=== PATIENT | female | born 1990 | race Caucasian/White ===

== ENCOUNTER 2018-12-24 22:06 | Inpatient (IN) | payer BC ==
[2018-12-24] MEDS ORDERED: Morphine 4 MG/ML Syringe IVPUSH ONE (22:51)
[2018-12-24] MEDS ORDERED: Water For Irrigation,Sterile 1,000 ML Container IRR PRN (22:55)
[2018-12-24] MEDS ORDERED: Misoprostol 200 MCG Tab PO PRN (22:55)
[2018-12-24] MEDS ORDERED: Sodium Chloride 0.9% 2.5 ML Syringe FLUSH PRN (22:55)
[2018-12-24] MEDS ORDERED: Nalbuphine 10 MG/1 ML Vial IVPUSH PRN (22:55)
[2018-12-24] MEDS ORDERED: Carboprost Tromethamine 250 MCG/1 ML Amp IM PRN (22:55)
[2018-12-24] MEDS ORDERED: Sodium Chloride 0.9% 10 ML Syringe FLUSH PRN (22:55)
[2018-12-24] MEDS ORDERED: Sodium Chloride 0.9% 10 ML SDV IV PRN (22:55)
[2018-12-24] MEDS ORDERED: Lidocaine 1% 50 ML MDV INJECT PRN (22:55)
[2018-12-24] MEDS ORDERED: Tranexamic Acid 1,000 MG in Sodium Chloride 0.9% 100 ML IV PRN (22:55)
[2018-12-24] MEDS ORDERED: Methylergonovine 0.2 MG/1 ML Amp IM PRN (22:55)
[2018-12-24] MEDS ORDERED: Butorphanol 1 MG/ML SDV IVPUSH PRN (22:55)
[2018-12-24] MEDS ORDERED: Oxytocin/0.9 % Sodium Chloride 30 UNIT/500 ML BAG IV SCH (23:00)
[2018-12-24] MEDS: Lactated Ringers 1,000 ML IV SCH ×2 (23:05→23:40)
[2018-12-24] MEDS ORDERED: Bupivacaine 0.25% 10 ML SDV ONE (23:11)
[2018-12-24] MEDS ORDERED: fentaNYL 100 MCG/2 ML SDV ONE (23:11)
[2018-12-24] MEDS ORDERED: Lidocaine HCl/EPINEPHrine 5 ML IJ ONE (23:12)
[2018-12-24] MEDS ORDERED: Ampicillin 2 GM AdvVial IV ONE (23:28)
[2018-12-24] MEDS ORDERED: Sodium Chloride 0.9% 100 ML ONE (23:29)
--- NOTE | 2018-12-24 23:42 | PCM.PREANE ---
Preanesthetic Assessment - Anesthesia/Transfusion/Family Hx Anesthesia History: Prior Anesthesia Without Reaction Transfusion History: No Prior Transfusion(s) - Review of Systems General: No Symptoms Pulmonary: No Symptoms Cardiovascular: No Symptoms Gastrointestinal: No Symptoms Neurological: No Symptoms Other: Reports: None - Physical Assessment Pulse: 98 O2 Sat by Pulse Oximetry: 98 Respiratory Rate: 22 Blood Pressure: 125/73 Height: 1.73 m Weight: 94.347 kg - Lab Values: Laboratory Last Values WBC 17.94 K/uL (4.0-11.0) H 12/24/18 23:07 RBC 4.32 M/uL (4.30-5.90) 12/24/18 23:07 Hgb 13.7 g/dL (12.0-16.0) 12/24/18 23:07 Hct 38.7 % (36.0-46.0) 12/24/18 23:07 MCV 89.6 fL (80.0-98.0) 12/24/18 23:07 MCH 31.7 pg (27.0-32.0) 12/24/18 23:07 MCHC 35.4 g/dL (31.0-37.0) 12/24/18 23:07 RDW Std Deviation 43.5 fl (28.0-62.0) 12/24/18 23:07 RDW Coeff of Paul 14 % (11.0-15.0) 12/24/18 23:07 Plt Count 140 K/uL (150-400) L 12/24/18 23:07 MPV 12.00 fL (7.40-12.00) 12/24/18 23:07 Nucleated RBC % 0.0 /100WBC 12/24/18 23:07 Nucleated RBCs # 0 K/uL 12/24/18 23:07 - Allergies Allergies/Adverse Reactions: Allergies Allergy/AdvReac Type Severity Reaction Status Date / Time No Known Allergies Allergy Verified 12/24/18 22:10 - Acknowledgements Anesthesia Type Planned: Epidural Pt an Appropriate Candidate for the Planned Anesthesia: Yes Alternatives and Risks of Anesthesia Discussed w Pt/Guardian: Yes Pt/Guardian Understands and Agrees with Anesthesia Plan: Yes PreAnesthesia Questionnaire - Past Health History Medical/Surgical History: Denies Medical/Surgical History Genitourinary History: Reports: UTI, Recurrent [employer] History: Reports: Musculoskeletal History: Reports: Back Pain, Chronic 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 - Past Surgical History HEENT Surgical History: Reports: Oral Surgery - CURRENT (IN HOUSE) MEDS Current Meds: Current Medications Butorphanol Tartrate (Stadol) 1 mg IVPUSH Q1H PRN PRN Reason: Pain Carboprost Tromethamine (Hemabate Ds) 250 mcg IM ASDIRECTED PRN PRN Reason: Post Hemorrhage Tranexamic Acid 1,000 mg/ (Sodium Chloride) 110 mls @ 660 mls/hr IV ONETIME PRN PRN Reason: Bleeding Lactated Ringer's (Ringers, Lactated) 1,000 mls @ 150 mls/hr IV ASDIRECTED [facility] Last Admin: 12/24/18 23:40 Dose: 150 mls/hr Oxytocin/Sodium Chloride (Oxytocin 30 Unit/500 Ml-Ns) 30 unit in 500 mls @ 500 mls/hr IV TITRATE [facility] Lidocaine HCl (Xylocaine 1%) 50 ml INJECT ONETIME PRN PRN Reason: Laceration repair Methylergonovine Maleate (Methergine) 0.2 mg IM ASDIRECTED PRN PRN Reason: Post Hemorrhage Misoprostol (Cytotec) 200 mcg PO ONETIME PRN PRN Reason: Post Hemorrhage Nalbuphine HCl (Nubain) 10 mg IVPUSH Q1H PRN PRN Reason: Pain (severe 7-10) Sodium Chloride (Saline Flush) 10 ml FLUSH ASDIRECTED PRN PRN Reason: Keep Vein Open Sodium Chloride (Saline Flush) 2.5 ml FLUSH ASDIRECTED PRN PRN Reason: Keep Vein Open Sodium Chloride (Normal Saline) 10 ml IV ASDIRECTED PRN PRN Reason: IV Use Sterile Water (Sterile Water For Irrigation) 1,000 ml IRR ASDIRECTED PRN PRN Reason: delivery Discontinued Medications Ampicillin Sodium (Ampicillin) Confirm Administered Dose 2 gm IV .STK-MED ONE Stop: 12/24/18 23:29 Last Admin: 12/24/18 23:40 Dose: 2 gm Bupivacaine HCl (Sensorcaine-Mpf 0.25%) Confirm Administered Dose 10 ml .ROUTE .STK-MED ONE Stop: 12/24/18 23:12 Fentanyl (Sublimaze) Confirm Administered Dose 100 mcg .ROUTE .STK-MED ONE Stop: 12/24/18 23:12 Fentanyl/Bupivacaine HCl (Uqtqhtsg-Hzdzz-Wd 2 Mcg/Ml-0.125%) Confirm Administered Dose 100 mls @ as directed .ROUTE .STK-MED ONE Stop: 12/24/18 23:12 Sodium Chloride (Normal Saline) Confirm Administered Dose 100 mls @ as directed .ROUTE .STK-MED ONE Stop: 12/24/18 23:30 Lidocaine/Epinephrine (Lidocaine 1.5%-Epi 1:200,000) Confirm Administered Dose 5 ml IJ .STK-MED ONE Stop: 12/24/18 23:13 Morphine Sulfate (Morphine) 4 mg IVPUSH ONETIME ONE Stop: 12/24/18 22:52
--- NOTE | 2018-12-24 23:53 | PCM48HPAN ---
Post Anesthesia Note - EVALUATION WITHIN 48HRS OF ANESTHETIC Vital Signs in Normal Range: Yes Patient Participated in Evaluation: Yes Respiratory Function Stable: Yes Airway Patent: Yes Cardiovascular Function Stable: Yes Hydration Status Stable: Yes Pain Control Satisfactory: Yes Nausea and Vomiting Control Satisfactory: Yes Mental Status Recovered: Yes Pulse Rate: 98 Resp Rate: 22 Blood Pressure: 125/73
[2018-12-25] MEDS: Lactated Ringers 1,000 ML IV SCH (00:03)
[2018-12-25] MEDS: Ampicillin 1 GM in Sodium Chloride 0.9% 50 ML IV SCH (03:21)
[2018-12-25] MEDS ORDERED: Ondansetron 4 MG/2 ML SDV IVPUSH PRN (04:23)
[2018-12-25] MEDS ORDERED: Oxytocin/0.9 % Sodium Chloride 30 UNIT/500 ML BAG IV SCH (05:15)
[2018-12-25] MEDS ORDERED: Acetaminophen 500 MG Tab PO PRN ×2 (06:20)
[2018-12-25] MEDS ORDERED: oxyCODONE 5 MG Tab PO PRN (06:20)
[2018-12-25] MEDS ORDERED: Witch Hazel Medicated Pads 40/Jar TOP PRN (06:20)
[2018-12-25] MEDS ORDERED: Benzocaine/Menthol 20%-0.5% Spray 78 GM Cannister TOP PRN (06:20)
[2018-12-25] MEDS ORDERED: Ibuprofen 400 MG Tab PO PRN (06:20)
[2018-12-25] MEDS ORDERED: Bisacodyl 10 MG Supp RECTAL PRN (06:20)
[2018-12-25] MEDS ORDERED: Lanolin 100% Cream 7 GM Tube TOP PRN (06:20)
--- NOTE | 2018-12-25 06:47 | PCM.DEL ---
L & D Note - General Info Date of Service: 12/25/18 Mother's Due Date: 01/03/19 - Delivery Note Labor: Spontaneous, Augmented by Oxytocin Delivery Outcome: Livebirth Presentation: Left Occiput Anterior (TRAVIS) Nuchal Cord: None Anesthesia Type: Epidural Amniotic Fluid Description: Clear Episiotomy Type: None Laceration: 2nd Degree Suture type: Other (monocryl ) Suture size: 3-0 Score 1 min: 8 Score 5 min: 9 - General Info Date of Service: 12/25/18 - Patient Data Vitals - Most Recent: Last Vital Signs Temp Pulse 98 12/24/18 23:53 Resp 22 H 12/24/18 23:53 BP 125/73 12/24/18 23:53 Pulse Ox 98 12/24/18 23:42 Weight - Most Recent: 94.347 kg Lab Results Last 24 Hours: Laboratory Results - last 24 hr 12/24/18 12/24/18 Range/Units 23:07 23:07 WBC 17.94 H (4.0-11.0) K/uL RBC 4.32 (4.30-5.90) M/uL Hgb 13.7 (12.0-16.0) g/dL Hct 38.7 (36.0-46.0) % MCV 89.6 (80.0-98.0) fL MCH 31.7 (27.0-32.0) pg MCHC 35.4 (31.0-37.0) g/dL RDW Std Deviation 43.5 (28.0-62.0) fl RDW Coeff of Paul 14 (11.0-15.0) % Plt Count 140 L (150-400) K/uL MPV 12.00 (7.40-12.00) fL Nucleated RBC % 0.0 /100WBC Nucleated RBCs # 0 K/uL Blood Type B NEGATIVE Antibody Screen NEGATIVE Cold Antibody Screen POSITIVE Med Orders - Current: Current Medications Acetaminophen (Tylenol Extra Strength) 500 mg PO Q4H PRN PRN Reason: Pain Acetaminophen (Tylenol Extra Strength) 1,000 mg PO Q4H PRN PRN Reason: Pain Benzocaine/Menthol (Dermoplast Pain Relief 20%-0.5% [place]) 78 gm TOP ASDIRECTED PRN PRN Reason: Perineal Comfort Measure Bisacodyl (Dulcolax) 10 mg RECTAL ONETIME PRN PRN Reason: Constipation Butorphanol Tartrate (Stadol) 1 mg IVPUSH Q1H PRN PRN Reason: Pain Carboprost Tromethamine (Hemabate Ds) 250 mcg IM ASDIRECTED PRN PRN Reason: Post Hemorrhage Docusate Sodium (Colace) 100 mg PO BID PRN PRN Reason: Constipation Emollient Ointment (Lansinoh Hpa) 0 gm TOP ASDIRECTED PRN PRN Reason: Sore Nipples Tranexamic Acid 1,000 mg/ (Sodium Chloride) 110 mls @ 660 mls/hr IV ONETIME PRN PRN Reason: Bleeding Lactated Ringer's (Ringers, Lactated) 1,000 mls @ 150 mls/hr IV ASDIRECTED [facility] Last Admin: 12/25/18 00:03 Dose: 150 mls/hr Oxytocin/Sodium Chloride (Oxytocin 30 Unit/500 Ml-Ns) 30 unit in 500 mls @ 500 mls/hr IV TITRATE [facility] Ampicillin Sodium 1 gm/ Sodium (Chloride) 50 mls @ 100 mls/hr IV Q4H [facility] Last Admin: 12/25/18 03:21 Dose: 100 mls/hr Oxytocin/Sodium Chloride (Oxytocin 30 Unit/500 Ml-Ns) 30 unit in 500 mls @ 2 mls/hr IV TITRATE [facility]; Protocol Last Infusion: 12/25/18 05:18 Dose: 4 munits/min, 4 mls/hr Ibuprofen (Motrin) 400 mg PO Q4H PRN PRN Reason: Pain Ibuprofen (Motrin) 800 mg PO Q6H PRN PRN Reason: Pain Lidocaine HCl (Xylocaine 1%) 50 ml INJECT ONETIME PRN PRN Reason: Laceration repair Methylergonovine Maleate (Methergine) 0.2 mg IM ASDIRECTED PRN PRN Reason: Post Hemorrhage Misoprostol (Cytotec) 200 mcg PO ONETIME PRN PRN Reason: Post Hemorrhage Nalbuphine HCl (Nubain) 10 mg IVPUSH Q1H PRN PRN Reason: Pain (severe 7-10) Ondansetron HCl (Zofran) 4 mg IVPUSH Q4H PRN PRN Reason: Nausea Last Admin: 12/25/18 04:31 Dose: 4 mg Oxycodone HCl (Oxycodone) 5 mg PO Q2H PRN PRN Reason: Pain Sodium Chloride (Saline Flush) 10 ml FLUSH ASDIRECTED PRN PRN Reason: Keep Vein Open Sodium Chloride (Saline Flush) 2.5 ml FLUSH ASDIRECTED PRN PRN Reason: Keep Vein Open Sodium Chloride (Normal Saline) 10 ml IV ASDIRECTED PRN PRN Reason: IV Use Sterile Water (Sterile Water For Irrigation) 1,000 ml IRR ASDIRECTED PRN PRN Reason: delivery Last Admin: 12/25/18 06:18 Dose: 1,000 ml Witch Arabella (Tucks) 1 pad TOP ASDIRECTED PRN PRN Reason: comfort care Discontinued Medications Ampicillin Sodium (Ampicillin) Confirm Administered Dose 2 gm IV .STK-MED ONE Stop: 12/24/18 23:29 Last Admin: 12/24/18 23:40 Dose: 2 gm Bupivacaine HCl (Sensorcaine-Mpf 0.25%) Confirm Administered Dose 10 ml .ROUTE .STK-MED ONE Stop: 12/24/18 23:12 Fentanyl (Sublimaze) Confirm Administered Dose 100 mcg .ROUTE .STK-MED ONE Stop: 12/24/18 23:12 Fentanyl/Bupivacaine HCl (Vnoobyfl-Gadkv-Nq 2 Mcg/Ml-0.125%) Confirm Administered Dose 100 mls @ as directed .ROUTE .STK-MED ONE Stop: 12/24/18 23:12 Sodium Chloride (Normal Saline) Confirm Administered Dose 100 mls @ as directed .ROUTE .STK-MED ONE Stop: 12/24/18 23:30 Last Admin: 12/24/18 23:40 Dose: Not Given Fentanyl/Bupivacaine HCl (Nhpzqdwn-Daguh-Vv 2 Mcg/Ml-0.125%) Confirm Administered Dose 100 mls @ as directed .ROUTE .STK-MED ONE Stop: 12/25/18 04:13 Lidocaine/Epinephrine (Lidocaine 1.5%-Epi 1:200,000) Confirm Administered Dose 5 ml IJ .STK-MED ONE Stop: 12/24/18 23:13 Morphine Sulfate (Morphine) 4 mg IVPUSH ONETIME ONE Stop: 12/24/18 22:52 - Problem List & Annotations (1) Vaginal delivery SNOMED Code(s): 188323428 Code(s): O80 - ENCOUNTER FOR FULL-TERM UNCOMPLICATED DELIVERY Status: Acute Current Visit: No - Problem List Review Problem List Initiated/Reviewed/Updated: Yes - My Orders Last 24 Hours: My Active Orders 12/24/18 22:11 Resuscitation Status Routine 12/24/18 22:12 Patient Status [ADT] Routine Non Stress Test [RC] PER UNIT ROUTINE Up ad Cecilia [RC] ASDIRECTED Vaginal Exam [RC] Click to Edit Vital Signs [RC] PER UNIT ROUTINE 12/25/18 03:15 Ampicillin 1 gm Sodium Chloride 0.9% [Normal Saline] 50 ml IV Q4H 12/25/18 04:23 Ondansetron [Zofran] 4 mg IVPUSH Q4H PRN 12/25/18 05:15 Oxytocin/0.9 % Sodium Chloride [Oxytocin 30 Unit/500 ML-NS] 30 unit in 500 ml IV TITRATE 12/25/18 06:20 RHIG WORKUP, [BBK] Routine Acetaminophen [Tylenol Extra Strength] 1,000 mg PO Q4H PRN Acetaminophen [Tylenol Extra Strength] 500 mg PO Q4H PRN Benzocaine/Menthol [Dermoplast Pain Relief 20%-0.5% [place]] 78 gm TOP ASDIRECTED PRN Bisacodyl [Dulcolax] 10 mg RECTAL ONETIME PRN Docusate Sodium [Colace] 100 mg PO BID PRN Ibuprofen [Motrin] 400 mg PO Q4H PRN Ibuprofen [Motrin] 800 mg PO Q6H PRN Lanolin [Lansinoh HPA] See Dose Instructions TOP ASDIRECTED PRN Witch Arabella [Tucks] 1 pad TOP ASDIRECTED PRN oxyCODONE 5 mg PO Q2H PRN 12/25/18 06:21 May Shower [RC] ASDIRECTED Up ad Cecilia [RC] ASDIRECTED Vital Signs [RC] PER UNIT ROUTINE Assess Lochia [WOMSER] Per Unit Routine Assess Uterine Involution [WOMSER] Per Unit Routine Peripheral IV Discontinue [OM.PC] Routine 12/26/18 05:11 HEMOGLOBIN/HEMATOCRIT,HH [HEME] Timed
--- NOTE | 2018-12-25 08:51 | OR ---
SURGEON: OG PLUMMER DATE OF PROCEDURE: 12/25/2018 PREOPERATIVE DIAGNOSIS: A 28-year-old, 2, para 1-0-0-1, at 38 weeks 5 days, in active labor. POSTOPERATIVE DIAGNOSES: A 28-year-old, 2, para 1-0-0-1, at 38 weeks 5 days, in active labor, group B streptococcus positive. ANESTHESIA: Epidural. IV FLUIDS: Pitocin running. PROCEDURE: Normal spontaneous vaginal delivery and repair of second-degree vaginal laceration. ESTIMATED BLOOD LOSS: 200 NOTES AND FINDING: A live male delivered at 5:44 a.m., with scores of 8 and 9, weight was 3610 g; a second-degree laceration that was repaired with 3-0 Monocryl. BRIEF HISTORY ABOUT THE PATIENT: She is a 28-year-old, G2, P1-0-0-1, who came in active labor. She was made change from 3 cm to 7 cm. She was requesting epidural which she got. Tracing was category I. She then made change after a little bit of augmentation with Pitocin to be fully dilated. With the patient being fully dilated, she was encouraged to push. DESCRIPTION OF PROCEDURE: With good pushing effort, the patient delivered the head in TRAVIS position, followed subsequently by the anterior and posterior shoulder. The of the body was delivered. The Pitocin was started. Infant was placed on maternal abdomen. Delayed cord clamping was observed. The placenta was delivered via controlled cord traction. The perineum was inspected and noted to have a second - degree laceration, which was repaired in layer with 3-0 Monocryl and the perineum was again inspected and noted to be hemostatic. Fundal massage was done and all instrument and pad counts were correct x2. The was left with the parents in Labor and Delivery suite in stable condition. WM / ELIZA /[id number] MTDD
[2018-12-25] MEDS: Docusate Sodium 100 MG Cap PO PRN ×2 (09:44→21:23)
[2018-12-25] MEDS: Ibuprofen 800 MG Tab PO PRN ×2 (16:28→22:31)
[2018-12-26 05:34] VITALS: BP 121/72
--- NOTE | 2018-12-26 07:29 | PCM.PNPP ---
<Cathryn Morse - Last Filed: 12/26/18 07:24> - General Info Date of Service: 12/26/18 Admission Dx/Problem (Free Text): spontaneous vaginal delivery Subjective Update: January is PP day 1 for of a liveborn infant. She states that she has no pain , is ambulating, eating, urinating well. She is having trouble as baby has a "shallow latch". She desires to go home this morning and reports no new symptoms. Functional Status: Reports: Pain Controlled, Tolerating Diet, Ambulating, Urinating - Review of Systems General: Reports: No Symptoms Pulmonary: Reports: No Symptoms Cardiovascular: Reports: No Symptoms Gastrointestinal: Reports: No Symptoms Genitourinary: Reports: No Symptoms Musculoskeletal: Reports: No Symptoms Skin: Reports: No Symptoms Neurological: Reports: No Symptoms Psychiatric: Reports: No Symptoms - General Info Date of Service: 12/26/18 - Patient Data Vital Signs - Most Recent: Last Vital Signs Temp 97.5 F 12/26/18 04:00 Pulse 66 12/26/18 04:00 Resp 17 12/26/18 04:00 BP 121/72 12/26/18 04:00 Pulse Ox 96 12/26/18 04:00 Weight - Most Recent: 94.347 kg Lab Results - Last 24 Hours: Laboratory Results - last 24 hr 12/26/18 Range/Units 05:46 Hgb 12.6 (12.0-16.0) g/dL Hct 37.4 (36.0-46.0) % Med Orders - Current: Current Medications Acetaminophen (Tylenol Extra Strength) 500 mg PO Q4H PRN PRN Reason: Pain Acetaminophen (Tylenol Extra Strength) 1,000 mg PO Q4H PRN PRN Reason: Pain Last Admin: 12/25/18 09:43 Dose: 1,000 mg Benzocaine/Menthol (Dermoplast Pain Relief 20%-0.5% [place]) 78 gm TOP ASDIRECTED PRN PRN Reason: Perineal Comfort Measure Last Admin: 12/25/18 09:44 Dose: 78 gm Bisacodyl (Dulcolax) 10 mg RECTAL ONETIME PRN PRN Reason: Constipation Butorphanol Tartrate (Stadol) 1 mg IVPUSH Q1H PRN PRN Reason: Pain Carboprost Tromethamine (Hemabate Ds) 250 mcg IM ASDIRECTED PRN PRN Reason: Post Hemorrhage Docusate Sodium (Colace) 100 mg PO BID PRN PRN Reason: Constipation Last Admin: 12/25/18 21:23 Dose: 100 mg Emollient Ointment (Lansinoh Hpa) 0 gm TOP ASDIRECTED PRN PRN Reason: Sore Nipples Last Admin: 12/25/18 09:44 Dose: 7 gm Tranexamic Acid 1,000 mg/ (Sodium Chloride) 110 mls @ 660 mls/hr IV ONETIME PRN PRN Reason: Bleeding Lactated Ringer's (Ringers, Lactated) 1,000 mls @ 150 mls/hr IV ASDIRECTED [facility] Last Admin: 12/25/18 00:03 Dose: 150 mls/hr Oxytocin/Sodium Chloride (Oxytocin 30 Unit/500 Ml-Ns) 30 unit in 500 mls @ 500 mls/hr IV TITRATE [facility] Ampicillin Sodium 1 gm/ Sodium (Chloride) 50 mls @ 100 mls/hr IV Q4H [facility] Last Admin: 12/25/18 03:21 Dose: 100 mls/hr Oxytocin/Sodium Chloride (Oxytocin 30 Unit/500 Ml-Ns) 30 unit in 500 mls @ 2 mls/hr IV TITRATE [facility]; Protocol Last Infusion: 12/25/18 05:18 Dose: 4 munits/min, 4 mls/hr Ibuprofen (Motrin) 400 mg PO Q4H PRN PRN Reason: Pain Ibuprofen (Motrin) 800 mg PO Q6H PRN PRN Reason: Pain Last Admin: 12/25/18 22:31 Dose: 800 mg Lidocaine HCl (Xylocaine 1%) 50 ml INJECT ONETIME PRN PRN Reason: Laceration repair Methylergonovine Maleate (Methergine) 0.2 mg IM ASDIRECTED PRN PRN Reason: Post Hemorrhage Misoprostol (Cytotec) 200 mcg PO ONETIME PRN PRN Reason: Post Hemorrhage Nalbuphine HCl (Nubain) 10 mg IVPUSH Q1H PRN PRN Reason: Pain (severe 7-10) Ondansetron HCl (Zofran) 4 mg IVPUSH Q4H PRN PRN Reason: Nausea Last Admin: 12/25/18 04:31 Dose: 4 mg Oxycodone HCl (Oxycodone) 5 mg PO Q2H PRN PRN Reason: Pain Sodium Chloride (Saline Flush) 10 ml FLUSH ASDIRECTED PRN PRN Reason: Keep Vein Open Sodium Chloride (Saline Flush) 2.5 ml FLUSH ASDIRECTED PRN PRN Reason: Keep Vein Open Sodium Chloride (Normal Saline) 10 ml IV ASDIRECTED PRN PRN Reason: IV Use Sterile Water (Sterile Water For Irrigation) 1,000 ml IRR ASDIRECTED PRN PRN Reason: delivery Last Admin: 12/25/18 06:18 Dose: 1,000 ml Witch Arabella (Tucks) 1 pad TOP ASDIRECTED PRN PRN Reason: comfort care Last Admin: 12/25/18 09:44 Dose: 1 pad Discontinued Medications Ampicillin Sodium (Ampicillin) Confirm Administered Dose 2 gm IV .STK-MED ONE Stop: 12/24/18 23:29 Last Admin: 12/24/18 23:40 Dose: 2 gm Bupivacaine HCl (Sensorcaine-Mpf 0.25%) Confirm Administered Dose 10 ml .ROUTE .STK-MED ONE Stop: 12/24/18 23:12 Fentanyl (Sublimaze) Confirm Administered Dose 100 mcg .ROUTE .STK-MED ONE Stop: 12/24/18 23:12 Fentanyl/Bupivacaine HCl (Tegkaizg-Jrsxe-Ke 2 Mcg/Ml-0.125%) Confirm Administered Dose 100 mls @ as directed .ROUTE .STK-MED ONE Stop: 12/24/18 23:12 Sodium Chloride (Normal Saline) Confirm Administered Dose 100 mls @ as directed .ROUTE .STK-MED ONE Stop: 12/24/18 23:30 Last Admin: 12/24/18 23:40 Dose: Not Given Fentanyl/Bupivacaine HCl (Setapgbj-Yqioj-Aa 2 Mcg/Ml-0.125%) Confirm Administered Dose 100 mls @ as directed .ROUTE .STK-MED ONE Stop: 12/25/18 04:13 Lidocaine/Epinephrine (Lidocaine 1.5%-Epi 1:200,000) Confirm Administered Dose 5 ml IJ .STK-MED ONE Stop: 12/24/18 23:13 Morphine Sulfate (Morphine) 4 mg IVPUSH ONETIME ONE Stop: 12/24/18 22:52 - Infant Interaction Disposition, : [place] at Bedside Infant Interaction: Other (see below) (infant in bassinette in room) Feeding: Attempted ; Nursed Fair/Poor Other Feeding: requested to see counselor Support Person: - Recovery Exam Fundal Tone: Firm Fundal Level: At Umbilicus Fundal Placement: Midline Lochia Amount: Small Lochia Color: Rubra/Red Perineum Description: Other (see below) Other Perinuem Description: Second degree tear Episiotomy/Laceration: Approximated Bladder Status: Voiding Urinary Elimination: Voided - Exam General: Alert, Oriented HEENT: Pupils Equal, Pupils Reactive, EOMI Neck: Supple Lungs: Clear to Auscultation, Normal Respiratory Effort Cardiovascular: Regular Rate, Regular Rhythm GI/Abdominal Exam: Normal Bowel Sounds, Soft, Non-Tender, No Organomegaly Extremities: Normal Inspection, Normal Range of Motion, Non-Tender, No Pedal Edema Skin: Warm, Dry, Intact Wound/Incisions: Healing Well Neurological: No New Focal Deficit Psy/Mental Status: Alert, Normal Affect, Normal Mood - Problem List & Annotations (1) Vaginal delivery SNOMED Code(s): 135495862 Code(s): O80 - ENCOUNTER FOR FULL-TERM UNCOMPLICATED DELIVERY Status: Acute Current Visit: No - Problem List Review Problem List Initiated/Reviewed/Updated: Yes - Assessment Assessment:: January is PP day 1 for . She is improving in status and has reassuring labs. Her vital signs are stable. - Plan Plan:: Pain-- continue to manage pain. Discharge on tylenol and ibuprofen prn for pain. PP cares-- continue routine PP cares. Disposition-- patient stable and continuing to improve. Will likely discharge to home this morning. <Sherie Hess - Last Filed: 12/26/18 07:55> - Patient Data Vital Signs - Most Recent: Last Vital Signs Temp 36.4 C 12/26/18 04:00 Pulse 66 12/26/18 04:00 Resp 17 12/26/18 04:00 BP 121/72 12/26/18 04:00 Pulse Ox 96 12/26/18 04:00 Lab Results - Last 24 Hours: Laboratory Results - last 24 hr 12/26/18 Range/Units 05:46 Hgb 12.6 (12.0-16.0) g/dL Hct 37.4 (36.0-46.0) % Med Orders - Current: Current Medications Acetaminophen (Tylenol Extra Strength) 500 mg PO Q4H PRN PRN Reason: Pain Acetaminophen (Tylenol Extra Strength) 1,000 mg PO Q4H PRN PRN Reason: Pain Last Admin: 12/25/18 09:43 Dose: 1,000 mg Benzocaine/Menthol (Dermoplast Pain Relief 20%-0.5% [place]) 78 gm TOP ASDIRECTED PRN PRN Reason: Perineal Comfort Measure Last Admin: 12/25/18 09:44 Dose: 78 gm Bisacodyl (Dulcolax) 10 mg RECTAL ONETIME PRN PRN Reason: Constipation Butorphanol Tartrate (Stadol) 1 mg IVPUSH Q1H PRN PRN Reason: Pain Carboprost Tromethamine (Hemabate Ds) 250 mcg IM ASDIRECTED PRN PRN Reason: Post Hemorrhage Docusate Sodium (Colace) 100 mg PO BID PRN PRN Reason: Constipation Last Admin: 12/25/18 21:23 Dose: 100 mg Emollient Ointment (Lansinoh Hpa) 0 gm TOP ASDIRECTED PRN PRN Reason: Sore Nipples Last Admin: 12/25/18 09:44 Dose: 7 gm Tranexamic Acid 1,000 mg/ (Sodium Chloride) 110 mls @ 660 mls/hr IV ONETIME PRN PRN Reason: Bleeding Lactated Ringer's (Ringers, Lactated) 1,000 mls @ 150 mls/hr IV ASDIRECTED [facility] Last Admin: 12/25/18 00:03 Dose: 150 mls/hr Oxytocin/Sodium Chloride (Oxytocin 30 Unit/500 Ml-Ns) 30 unit in 500 mls @ 500 mls/hr IV TITRATE [facility] Ampicillin Sodium 1 gm/ Sodium (Chloride) 50 mls @ 100 mls/hr IV Q4H [facility] Last Admin: 12/25/18 03:21 Dose: 100 mls/hr Oxytocin/Sodium Chloride (Oxytocin 30 Unit/500 Ml-Ns) 30 unit in 500 mls @ 2 mls/hr IV TITRATE [facility]; Protocol Last Infusion: 12/25/18 05:18 Dose: 4 munits/min, 4 mls/hr Ibuprofen (Motrin) 400 mg PO Q4H PRN PRN Reason: Pain Ibuprofen (Motrin) 800 mg PO Q6H PRN PRN Reason: Pain Last Admin: 12/25/18 22:31 Dose: 800 mg Lidocaine HCl (Xylocaine 1%) 50 ml INJECT ONETIME PRN PRN Reason: Laceration repair Methylergonovine Maleate (Methergine) 0.2 mg IM ASDIRECTED PRN PRN Reason: Post Hemorrhage Misoprostol (Cytotec) 200 mcg PO ONETIME PRN PRN Reason: Post Hemorrhage Nalbuphine HCl (Nubain) 10 mg IVPUSH Q1H PRN PRN Reason: Pain (severe 7-10) Ondansetron HCl (Zofran) 4 mg IVPUSH Q4H PRN PRN Reason: Nausea Last Admin: 12/25/18 04:31 Dose: 4 mg Oxycodone HCl (Oxycodone) 5 mg PO Q2H PRN PRN Reason: Pain Sodium Chloride (Saline Flush) 10 ml FLUSH ASDIRECTED PRN PRN Reason: Keep Vein Open Sodium Chloride (Saline Flush) 2.5 ml FLUSH ASDIRECTED PRN PRN Reason: Keep Vein Open Sodium Chloride (Normal Saline) 10 ml IV ASDIRECTED PRN PRN Reason: IV Use Sterile Water (Sterile Water For Irrigation) 1,000 ml IRR ASDIRECTED PRN PRN Reason: delivery Last Admin: 12/25/18 06:18 Dose: 1,000 ml Witch Arabella (Tucks) 1 pad TOP ASDIRECTED PRN PRN Reason: comfort care Last Admin: 12/25/18 09:44 Dose: 1 pad Discontinued Medications Ampicillin Sodium (Ampicillin) Confirm Administered Dose 2 gm IV .STK-MED ONE Stop: 12/24/18 23:29 Last Admin: 12/24/18 23:40 Dose: 2 gm Bupivacaine HCl (Sensorcaine-Mpf 0.25%) Confirm Administered Dose 10 ml .ROUTE .STK-MED ONE Stop: 12/24/18 23:12 Fentanyl (Sublimaze) Confirm Administered Dose 100 mcg .ROUTE .STK-MED ONE Stop: 12/24/18 23:12 Fentanyl/Bupivacaine HCl (Xtshvmgs-Ylqgs-Zs 2 Mcg/Ml-0.125%) Confirm Administered Dose 100 mls @ as directed .ROUTE .STK-MED ONE Stop: 12/24/18 23:12 Sodium Chloride (Normal Saline) Confirm Administered Dose 100 mls @ as directed .ROUTE .STK-MED ONE Stop: 12/24/18 23:30 Last Admin: 12/24/18 23:40 Dose: Not Given Fentanyl/Bupivacaine HCl (Xqvefamp-Fckfb-Qf 2 Mcg/Ml-0.125%) Confirm Administered Dose 100 mls @ as directed .ROUTE .STK-MED ONE Stop: 12/25/18 04:13 Lidocaine/Epinephrine (Lidocaine 1.5%-Epi 1:200,000) Confirm Administered Dose 5 ml IJ .STK-MED ONE Stop: 12/24/18 23:13 Morphine Sulfate (Morphine) 4 mg IVPUSH ONETIME ONE Stop: 12/24/18 22:52 - Problem List & Annotations (1) Vaginal delivery SNOMED Code(s): 905830246 Code(s): O80 - ENCOUNTER FOR FULL-TERM UNCOMPLICATED DELIVERY Status: Acute Current Visit: Yes - My Orders Last 24 Hours: My Active Orders 12/25/18 Lunch Regular Diet [DIET] - Plan Plan:: 28 yo P1 s/p stable PPD 1 Discharge home today Will encourage documentum consultant to visit with patient
[2018-12-26] MEDS: Ampicillin 1 GM in Sodium Chloride 0.9% 50 ML IV SCH ×2 (08:45→08:46)
[2018-12-26] MEDS: Docusate Sodium 100 MG Cap PO PRN (09:55)
== END 2018-12-26 10:45 | disposition home or self-care (01) | DRG 560 ==
LOC: MW.OBCHECK 22:06 → MW.OB 22:07 → MW.OBCHECK 22:56 → OBSVTOIN 12-25 05:44 → MW.OB 12-25 10:30
PROVIDERS: ADMIT Obstetrics & Gynecology; ATTEND Obstetrics & Gynecology
PROC: 00HU33Z Insertion of Infusion Device into Spinal Canal, Percutaneous Approach (ICD-10-PCS; 2018-12-24)
PROC: 3E0R3BZ Introduction of Anesthetic Agent into Spinal Canal, Percutaneous Approach (ICD-10-PCS; 2018-12-24)
PROC: 10E0XZZ Delivery of Products of Conception, External Approach (ICD-10-PCS; principal; 2018-12-25)
PROC: 0KQM0ZZ Repair Perineum Muscle, Open Approach (ICD-10-PCS; principal; 2018-12-25)
DX: O99.824 Streptococcus B carrier state complicating childbirth (principal); Z37.0 Single live birth; Z3A.38 38 weeks gestation of pregnancy; O98.32 Other infections with a predominantly sexual mode of transmission complicating childbirth; A63.0 Anogenital (venereal) warts; O70.1 Second degree perineal laceration during delivery; O99.354 Diseases of the nervous system complicating childbirth; G89.29 Other chronic pain; O75.89 Other specified complications of labor and delivery; M54.9 Dorsalgia, unspecified; Z87.440 Personal history of urinary (tract) infections
CPT/HCPCS: 36415; 51702; 59025; 59409; 85014; 85018; 85027; 86156; 86850; 86900; 86901; A9270-GY; J0290; J2405; J2590; J7050; J7120

== ENCOUNTER 2020-02-11 22:41 | Emergency (ER) | payer BC ==
--- NOTE | 2020-02-11 23:05 | EDM.PDOC ---
ED HPI GENERAL MEDICAL PROBLEM - General Chief Complaint: Genitourinary Problem Stated Complaint: POSSIBLE UTI Time Seen by Provider: 02/11/20 22:44 Source of Information: Reports: Patient History Limitations: Reports: No Limitations - History of Present Illness INITIAL COMMENTS - FREE TEXT/NARRATIVE: History of present illness: [Patient presents with increased frequency of urination and dysuria. She reports history of frequent UTIs. States that Cipro usually has been effective in treating her UTIs in the past. Denies fever. Denies chest pain, shortness of breath, vomiting, diarrhea. Has tried taking Azo at home to help relieve the symptoms with minimal relief. No other complaints or issues at this time.] Review of systems: As per history of present illness and below otherwise all systems reviewed and negative. Past medical history: As per history of present illness and as reviewed below otherwise noncontributory. Surgical history: As per history of present illness and as reviewed below otherwise noncontributory. Social history: No reported history of drug or alcohol abuse. Family history: As per history of present illness and as reviewed below otherwise noncontributory. Physical exam: General: Awake, alert, no acute distress, A&O X3. HEENT: Atraumatic, normocephalic, pupils reactive, negative for conjunctival pallor or scleral icterus, mucous membranes moist, throat clear, neck supple, nontender, trachea midline. Lungs: Clear to auscultation, breath sounds equal bilaterally, chest nontender. Heart: RRR, normal S1S2, no JVD. Abdomen: Soft, nondistended, nontender. Negative for masses or hepatosplenomegaly. Negative for costovertebral tenderness. Pelvis: Stable nontender. Genitourinary: Deferred. Rectal: Deferred. Extremities: Atraumatic, no edema, Neurovascular unremarkable. Neuro: Motor and sensory grossly intact throughout. Exam nonfocal. Diagnostics: [] Therapeutics: [] Impression: [] Plan: [] Definitive disposition and diagnosis as appropriate pending reevaluation and review of above. abdomen Pain Score (Numeric/FACES): 7 - Related Data Allergies Allergy/AdvReac Type Severity Reaction Status Date / Time No Known Allergies Allergy Verified 02/11/20 22:56 Home Meds: Home Meds . 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 - Infectious Disease History Infectious Disease History: Reports: Chicken Pox - Past Surgical History HEENT Surgical History: Reports: Oral Surgery Social & Family History - Family History Cardiac: Reports: Hypertension, [place] GI: Reports: Diverticulitis : Reports: UTI, Recurrent OBGYN: Reports: Musculoskeletal: Reports: Arthritis Psychiatric: Reports: Bipolar Endocrine/Metabolic: Reports: Diabetes, type II Oncologic: Reports: Breast, Liver - Tobacco Use Smoking Status *Q: Never Smoker - Caffeine Use Caffeine Use: Reports: Coffee - Recreational Drug Use Recreational Drug Use: No ED ROS GENERAL - Review of Systems Review Of Systems: Comprehensive ROS is negative, except as noted in HPI. ED EXAM, RENAL/ - Physical Exam Exam: See Below (see h and p) Course - Vital Signs Text/Narrative:: Patient received a dose of Cipro here. Was sent home with prescription for Cipro. Encouraged to follow-up with PCP. Otherwise nontoxic with stable vital signs and appropriate for outpatient management follow-up. Return precautions provided. Last Recorded V/S: Last Vital Signs Temp 36.1 C 02/11/20 22:53 Pulse 65 02/11/20 22:53 Resp 16 02/11/20 22:53 BP 142/63 H 02/11/20 22:53 Pulse Ox 98 02/11/20 22:53 - Orders/Labs/Meds Orders: Active Orders 24 hr Category Date Time Status Ciprofloxacin [Ciprofloxacin HCl] Med 02/11/20 23:08 Once 500 mg PO ONETIME ONE Medication Orders Ciprofloxacin (Ciprofloxacin Hcl) 500 mg PO ONETIME ONE Stop: 02/11/20 23:09 Labs: Laboratory Tests 02/11/20 02/11/20 Range/Units 10:47 10:47 Urine Color ORANGE Urine Appearance HAZY Urine pH 6.5 (5.0-8.0) Ur Specific [place] 1.025 (1.001-1.035) Urine Protein >=300 H (NEGATIVE) mg/dL Urine Glucose (UA) 500 H (NEGATIVE) mg/dL Urine Ketones 15 H (NEGATIVE) mg/dL Urine Occult Blood TRACE-INTACT H (NEGATIVE) Urine Nitrite POSITIVE H (NEGATIVE) Urine Bilirubin NEGATIVE (NEGATIVE) Urine Urobilinogen >=8.0 H (<2.0) EU/dL Ur Leukocyte Esterase MODERATE H (NEGATIVE) Urine RBC 2-5 (0-2/HPF) Urine WBC 50-60 (0-5/HPF) Ur Epithelial Cells FEW (NONE-FEW) Urine Bacteria 1+ H (NEGATIVE) Urine HCG, Qual NEGATIVE (NEGATIVE) Meds: Medications Generic Name Dose Route Start Last Admin Trade Name Freq PRN Reason Stop Dose Admin Ciprofloxacin 500 mg 02/11/20 23:08 Ciprofloxacin Hcl PO 02/11/20 23:09 ONETIME ONE Departure - Departure Time of Disposition: 23:09 Disposition: Home, Self-Care 01 Condition: Good Clinical Impression: UTI, Urinary tract infectious disease, UTI (urinary tract infection) - Discharge Information Instructions: Urinary Tract Infection, Adult, [id number] Referrals: Iza Giron MD [Primary Care Provider] - Forms: ED Department Discharge Additional Instructions: Follow-up with primary care doctor. Take all medications as prescribed. Return to ER with any new or worsening symptoms. The following information is given to patients seen in the emergency department who are being discharged to home. This information is to outline your options for follow-up care. We provide all patients seen in our emergency department with a follow-up referral. The need for follow-up, as well as the timing and circumstances, are variable depending upon the specifics of your emergency department visit. If you don't have a primary care physician on staff, we will provide you with a referral. We always advise you to contact your personal physician following an emergency department visit to inform them of the circumstance of the visit and for follow-up with them and/or the need for any referrals to a consulting specialist. The emergency department will also refer you to a specialist when appropriate. This referral assures that you have the opportunity for follow-up care with a specialist. All of these measure are taken in an effort to provide you with optimal care, which includes your follow-up. Under all circumstances we always encourage you to contact your private physician who remains a resource for coordinating your care. When calling for follow-up care, please make the office aware that this follow-up is from your recent emergency room visit. If for any reason you are refused follow-up, please contact the [facility] Emergency Department at and asked to speak to the emergency department charge nurse. Sepsis Event Note - Evaluation Sepsis Screening Result: No Definite Risk - Focused Exam Vital Signs: Vital Signs Temp Pulse Resp BP Pulse Ox 02/11/20 22:53 36.1 C 65 16 142/63 H 98 Date Exam was Performed: 02/11/20 Time Exam was Performed: 23:09 - My Orders Last 24 Hours: My Active Orders 02/11/20 23:08 Ciprofloxacin [Ciprofloxacin HCl] 500 mg PO ONETIME ONE - Assessment/Plan Last 24 Hours: My Active Orders 02/11/20 23:08 Ciprofloxacin [Ciprofloxacin HCl] 500 mg PO ONETIME ONE
[2020-02-11] MEDS ORDERED: Ciprofloxacin 500 MG Tab PO ONE (23:08)
[2020-02-11 23:22] VITALS: BP 115/64; PULSE 64
== END 2020-02-11 23:20 | disposition home or self-care (01) ==
LOC: MW.ED 22:41
DX: N39.0 Urinary tract infection, site not specified (principal)
CPT/HCPCS: 81001; 81025; 99283; A9270; 99282

== ENCOUNTER 2020-03-24 08:59 | Emergency (ER) | payer BC ==
--- NOTE | 2020-03-24 09:31 | EDM.PDOC ---
ED HPI GENERAL MEDICAL PROBLEM - General Chief Complaint: Genitourinary Problem Stated Complaint: PT CLAIMS UTI AND EAR ACHE Time Seen by Provider: 03/24/20 09:03 Source of Information: Reports: Patient History Limitations: Reports: No Limitations - History of Present Illness INITIAL COMMENTS - FREE TEXT/NARRATIVE: 30-year-old female with no pertinent past medical history presenting with ear pain and dysuria. 2-day history of pain just prior to urinating, feels identical to prior UTIs. Denies hematuria, vaginal bleeding, fever, chills, nausea, vomiting. Also reports a 2-day history of right ear pain and right- sided sore throat. No change in hearing, no otorrhea, no facial or ear swelling, able to handle secretions without difficulty, no neck stiffness, no shortness of breath. 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 - Infectious Disease History Infectious Disease History: Reports: Chicken Pox - Past Surgical History HEENT Surgical History: Reports: Oral Surgery Social & Family History - Family History Family Medical History: Noncontributory Cardiac: Reports: Hypertension, [place] GI: Reports: Diverticulitis : Reports: UTI, Recurrent OBGYN: Reports: Musculoskeletal: Reports: Arthritis Psychiatric: Reports: Bipolar Endocrine/Metabolic: Reports: Diabetes, type II Oncologic: Reports: Breast, Liver - Tobacco Use Smoking Status *Q: Never Smoker - Caffeine Use Caffeine Use: Reports: Coffee - Recreational Drug Use Recreational Drug Use: No ED ROS GENERAL - Review of Systems Review Of Systems: See Below Constitutional: Denies: Fever, Chills HEENT: Reports: Ear Pain, Throat Pain. Denies: Dental Pain, Ear Discharge, Hearing Loss, Nosebleed, Nose Pain, Rhinitis, Throat Swelling Respiratory: Denies: Shortness of Breath Cardiovascular: Denies: Chest Pain Endocrine: Reports: No Symptoms GI/Abdominal: Denies: Abdominal Pain, Nausea, Vomiting : Reports: Dysuria, Urgency. Denies: Flank Pain, Hematuria Musculoskeletal: Denies: Neck Pain Skin: Denies: Rash Neurological: Denies: Headache Psychiatric: Reports: No Symptoms Hematologic/Lymphatic: Reports: No Symptoms Immunologic: Reports: No Symptoms ED EXAM, RENAL/ - Physical Exam Exam: See Below Text/Narrative:: Vital signs reviewed. Nursing notes reviewed. Constitutional: Awake, alert, non-distressed. Head: Normocephalic, atraumatic. Eyes: EOMI, conjunctiva normal, no discharge, no scleral icterus. Ears, Nose, Throat: External ears and nose normal, moist oral mucosa. Right TM and EAC clear. No evidence of swelling to the right ear. No right mastoid swelling. Mild post nasal drip. Tonsils 0+ bilaterally. No uvular deviation. Oropharynx appears normal. Cardiovascular: 2+ radial pulse, capillary refill less than 2 seconds. Pulmonary: normal work of breathing, no accessory muscle use. Integumentary: Appropriate color for ethnicity, warm, dry, no pallor or jaundice, no rash. Neurologic: Alert, answering questions appropriately, normal speech, no facial droop, moving all extremities well. Psychiatric: Appropriate mood and affect, normal thought process. Course - Vital Signs Text/Narrative:: 30-year-old female with dysuria and right ear pain. Patient [hemodynamically stable, afebrile], well-appearing, looks nontoxic. Differential diagnosis includes but is not limited to: Acute otitis media, otitis externa, serous otitis media, mastoiditis, malignant otitis externa, acute pharyngitis, tonsillitis, strep throat, UTI, pyelonephritis Given classic history of UTI symptoms and no systemic signs of illness, will plan to empirically treat for UTI with a 5-day course of nitrofurantoin, urinalysis or urine culture not necessary per guidelines. Examination of the ear, right TM, and mastoid are unremarkable. No evidence of infectious process. No evidence of strep throat or tonsillitis/pharyngitis. Presentation is consistent with acute right-sided otalgia. Recommended [id number] acetaminophen, ibuprofen. Plan: Patient is stable to discharge home with outpatient primary care follow- up. Strict emergency department return precautions were provided, patient indicated understanding. All questions were answered prior to departure. D ischarged in good condition. Last Recorded V/S: Last Vital Signs Temp 36.6 C 03/24/20 09:10 Pulse 87 03/24/20 09:10 Resp 16 03/24/20 09:10 BP 143/80 H 03/24/20 09:10 Pulse Ox 97 03/24/20 09:10 - Orders/Labs/Meds Orders: Active Orders 24 hr Category Date Time Status HCG QUALITATIVE,URINE [URCHEM] Stat Lab 03/24/20 09:05 Ordered UA W/GYPSY RFLX IF INDICATED [URIN] Stat Lab 03/24/20 09:04 Ordered Departure - Departure Time of Disposition: : Disposition: Home, Self-Care 01 Condition: Good Clinical Impression: Otalgia, right ear Acute cystitis Qualifiers: Hematuria presence: without hematuria Qualified Code(s): N30.00 - Acute cystitis without hematuria - Discharge Information *PRESCRIPTION DRUG MONITORING PROGRAM REVIEWED*: Not Applicable *COPY OF PRESCRIPTION DRUG MONITORING REPORT IN PATIENT BIRDIE: Not Applicable Prescriptions: Nitrofurantoin Monohyd/M-Cryst [Macrobid 100 mg Capsule] 100 mg PO BID 5 Days #10 capsule Instructions: Earache, Adult, Urinary Tract Infection, Adult, [id number] Referrals: Iza Giron MD [Primary Care Provider] - 1 Week (As needed) Additional Instructions: Thank you for choosing the [facility] emergency department in [place] for your medical needs today. It was a pleasure caring for you. You were seen in the emergency department for UTI symptoms and ear pain. There is no evidence of an ear infection that require antibiotics, I recommend continuing [id number] Tylenol and Motrin. You were treated with antibiotics for a presumed UTI. You should follow-up with your doctor in the next few days if you are not feeling better. Please return the emergency department immediately if your symptoms worsen or if you feel worse. The following information is given to patients seen in the emergency department who are being discharged. This information is to outline your options for follow-up care. We provide all patients seen in our emergency department with a follow-up referral. The need for follow-up, as well as the timing and circumstances, are variable depending upon the specifics of your emergency department visit. If you don't have a primary care physician on staff, we will provide you with a referral. We always advise you to contact your personal physician following an emergency department visit to inform them of the circumstance of the visit and for follow-up with them and/or the need for any referrals to a consulting specialist. The emergency department will also refer you to a specialist when appropriate. This referral assures that you have the opportunity for follow-up care with a specialist. All of these measure are taken in an effort to provide you with optimal care, which includes your follow-up. Under all circumstances we always encourage you to contact your private physician who remains a resource for coordinating your care. When calling for follow-up care, please make the office aware that this follow-up is from your recent emergency room visit. If for any reason you are refused follow-up, please contact the [facility] Emergency Department at and asked to speak to the emergency department charge nurse. If you do not have a primary care physician that is caring for you, you can contact these clinics below to set up an appointment to establish care: [facility] - [facility] [address] [place] [id number] [address] Sepsis Event Note (ED) - Evaluation Sepsis Screening Result: No Definite Risk - Focused Exam Vital Signs: Vital Signs Temp Pulse Resp BP Pulse Ox 03/24/20 09:10 36.6 C 87 16 143/80 H 97 - My Orders Last 24 Hours: My Active Orders 03/24/20 09:04 UA W/GYPSY RFLX IF INDICATED [URIN] Stat 03/24/20 09:05 HCG QUALITATIVE,URINE [URCHEM] Stat - Assessment/Plan Last 24 Hours: My Active Orders 03/24/20 09:04 UA W/GYPSY RFLX IF INDICATED [URIN] Stat 03/24/20 09:05 HCG QUALITATIVE,URINE [URCHEM] Stat
[2020-03-24 14:09] VITALS: BP 112/71; PULSE 72
== END 2020-03-24 09:44 | disposition home or self-care (01) ==
LOC: MW.ED 08:59
DX: N30.00 Acute cystitis without hematuria (principal); H92.01 Otalgia, right ear
CPT/HCPCS: 99282; 99283

== ENCOUNTER 2020-03-26 19:15 | Emergency (ER) | payer BC, OTHER ==
[2020-03-26] MEDS ORDERED: Sodium Chloride 0.9% 1,000 ML IV ONE (19:35)
[2020-03-26] MEDS ORDERED: Sodium Chloride 0.9% 2.5 ML Syringe FLUSH PRN (19:35)
[2020-03-26] MEDS ORDERED: Ondansetron 4 MG/2 ML SDV IVPUSH ONE (19:35)
[2020-03-26] MEDS ORDERED: Sodium Chloride 0.9% 10 ML Syringe FLUSH PRN ×2 (19:35)
[2020-03-26] MEDS ORDERED: Ketorolac 30 MG/ML SDV IVPUSH ONE (19:35)
--- NOTE | 2020-03-26 19:41 | EDM.PDOC ---
<Teresa Chin R - Last Filed: 03/26/20 19:43> ED HPI GENERAL MEDICAL PROBLEM - General Chief Complaint: Gastrointestinal Problem Stated Complaint: VOMITTING, RECENT COVID 19 TEST Time Seen by Provider: 03/26/20 19:24 Source of Information: Reports: Patient History Limitations: Reports: No Limitations - History of Present Illness INITIAL COMMENTS - FREE TEXT/NARRATIVE: Is reporting headache, body aches, nausea and vomiting over the last 3 days and particularly since 4:00 this afternoon. Patient states she has a history of chronic UTIs--on Wednesday she was seen for UTI and started on Macrobid. Since that time her dysuria has resolved. However, in the interim she has developed headache, fever, body aches, weakness. He saw Dr. Corcoran yesterday who did a strep screen, COVID screen, influenza screen. Strep and influenza screens were negative, COVID pending per the patient. She denies sore throat, cough, abdominal pain, diarrhea, constipation, back pain, or injury. Her fever resolved 3 days ago. Later, she recalls that the headache really started with an earache on the right. She had that evaluated on both Sat and yesterday by the providers she saw. Continues however to have some pain behind the ear and inside the ear. 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 - Infectious Disease History Infectious Disease History: Reports: Chicken Pox - Past Surgical History HEENT Surgical History: Reports: Oral Surgery Social & Family History - Family History Family Medical History: Noncontributory Cardiac: Reports: Hypertension, [place] GI: Reports: Diverticulitis : Reports: UTI, Recurrent OBGYN: Reports: Musculoskeletal: Reports: Arthritis Psychiatric: Reports: Bipolar Endocrine/Metabolic: Reports: Diabetes, type II Oncologic: Reports: Breast, Liver - Tobacco Use Smoking Status *Q: Never Smoker - Caffeine Use Caffeine Use: Reports: None - Recreational Drug Use Recreational Drug Use: No ED ROS GENERAL - Review of Systems Review Of Systems: Comprehensive ROS is negative, except as noted in HPI. ED EXAM, GI/ABD - Physical Exam Exam: See Below Exam Limited By: No Limitations General Appearance: Alert, Mild Distress (Due to symptoms) Ears: Normal External Exam, Normal Canal, Normal TMs, Other (c/o speculum pain. Also mild tenderness over the mastoid on the right) Nose: Normal Inspection Throat/Mouth: Normal Inspection Head: Atraumatic, Normocephalic Neck: Normal Inspection Respiratory/Chest: No Respiratory Distress, Lungs Clear, Normal Breath Sounds Cardiovascular: Normal Peripheral Pulses, Regular Rate, Rhythm, No Murmur GI/Abdominal Exam: Soft, Non-Tender, No Distention Neurological: Alert, Oriented Psychiatric: Normal Affect, Normal Mood Skin Exam: Warm, Dry, Intact, Normal Color, No Rash Lymphatic: No Adenopathy Departure - Departure Disposition: Home, Self-Care 01 Clinical Impression: Headache Qualifiers: Headache type: unspecified Headache chronicity pattern: acute headache Intractability: not intractable Qualified Code(s): R51 - Headache UTI (urinary tract infection) Qualifiers: Urinary tract infection type: acute cystitis Hematuria presence: without hematuria Qualified Code(s): N30.00 - Acute cystitis without hematuria - Discharge Information Prescriptions: cephALEXin [Keflex] 1,000 mg PO BID #40 cap Instructions: Antibiotic Medicine, Adult, [id number], Form - Headache Record, General Headache Without Cause, [id number], Urinary Tract Infection, Adult, [id number] Referrals: PCP,None [Primary Care Provider] - Alvaro Corcoran MD [Physician] - Forms: ED Department Discharge Additional Instructions: The following information is given to patients seen in the emergency department who are being discharged to home. This information is to outline your options for follow-up care. We provide all patients seen in our emergency department with a follow-up referral. The need for follow-up, as well as the timing and circumstances, are variable depending upon the specifics of your emergency department visit. If you don't have a primary care physician on staff, we will provide you with a referral. We always advise you to contact your personal physician following an emergency department visit to inform them of the circumstance of the visit and for follow-up with them and/or the need for any referrals to a consulting specialist. The emergency department will also refer you to a specialist when appropriate. This referral assures that you have the opportunity for follow-up care with a specialist. All of these measure are taken in an effort to provide you with optimal care, which includes your follow-up. Under all circumstances we always encourage you to contact your private physician who remains a resource for coordinating your care. When calling for follow-up care, please make the office aware that this follow-up is from your recent emergency room visit. If for any reason you are refused follow-up, please contact the [facility] Emergency Department at and asked to speak to the emergency department charge nurse. Sepsis Event Note (ED) - Evaluation Sepsis Screening Result: No Definite Risk <Birgit Pablo - Last Filed: 03/27/20 00:54> Course - Vital Signs Text/Narrative:: Received patient in signout from Teresa Chin NP, pending symptom relief. Patient with UTI, then has had headache and body aches for several days. Had a negative strep, COVID and influenza yesterday. Repeat COVID negative today. No signs of meningismus on exam. Labs unremarkable except for apparent ongoing UTI, despite having taken 3 days of Macrobid. Will give dose of Rocephin here and changed to Keflex p.o. Headache ongoing despite Toradol, as well as Tylenol and Motrin taken prior to arrival here. We will give Reglan/Benadryl and transphenoidal block with lidocaine. Did report that symptoms started with pain in the right ear and mastoid area. Minimally tender in the mastoid. Will check CT brain. Last Recorded V/S: Last Vital Signs Temp 96.9 F 03/26/20 19:24 Pulse 80 03/26/20 19:24 Resp 16 03/26/20 19:24 BP 119/79 03/26/20 19:24 Pulse Ox 97 03/26/20 19:24 - Orders/Labs/Meds Orders: Active Orders 24 hr Category Date Time Status Sodium Chloride 0.9% [Saline Flush] Med 03/26/20 19:35 Active 10 ml FLUSH ASDIRECTED PRN Sodium Chloride 0.9% [Saline Flush] Med 03/26/20 19:35 Active 10 ml FLUSH ASDIRECTED PRN Sodium Chloride 0.9% [Saline Flush] Med 03/26/20 19:35 Active 2.5 ml FLUSH ASDIRECTED PRN Saline Lock Insert [OM.PC] Stat Oth 03/26/20 19:35 Ordered Medication Orders Sodium Chloride (Saline Flush) 10 ml FLUSH ASDIRECTED PRN PRN Reason: Keep Vein Open Sodium Chloride (Saline Flush) 2.5 ml FLUSH ASDIRECTED PRN PRN Reason: Keep Vein Open Sodium Chloride (Saline Flush) 10 ml FLUSH ASDIRECTED PRN PRN Reason: Keep Vein Open Labs: Laboratory Tests 03/26/20 03/26/20 03/26/20 Range/Units 20:00 20:00 20:00 WBC 10.13 (4.0-11.0) K/uL RBC 4.88 (4.30-5.90) M/uL Hgb 14.8 (12.0-16.0) g/dL Hct 44.9 (36.0-46.0) % MCV 92.0 (80.0-98.0) fL MCH 30.3 (27.0-32.0) pg MCHC 33.0 (31.0-37.0) g/dL RDW Std Deviation 41.3 (28.0-62.0) fl RDW Coeff of Paul 12 (11.0-15.0) % Plt Count 195 (150-400) K/uL MPV 10.90 (7.40-12.00) fL Neut % (Auto) 74.6 (48.0-80.0) % Lymph % (Auto) 16.6 (16.0-40.0) % [place] % (Auto) 7.9 (0.0-15.0) % Eos % (Auto) 0.6 (0.0-7.0) % Baso % (Auto) 0.3 (0.0-1.5) % Neut # (Auto) 7.6 H (1.4-5.7) K/uL Lymph # (Auto) 1.7 (0.6-2.4) K/uL [place] # (Auto) 0.8 (0.0-0.8) K/uL Eos # (Auto) 0.1 (0.0-0.7) K/uL Baso # (Auto) 0.0 (0.0-0.1) K/uL Nucleated RBC % 0.0 /100WBC Nucleated RBCs # 0 K/uL Sodium 136 (136-145) mmol/L Potassium 3.7 (3.5-5.1) mmol/L Chloride 100 (98-107) mmol/L Carbon Dioxide 24.5 (21.0-32.0) mmol/L BUN 20 H (7.0-18.0) mg/dL Creatinine 1.1 H (0.6-1.0) mg/dL Est Cr Clr Drug Dosing 74.07 mL/min Estimated GFR (MDRD) 57.6 ml/min Glucose 93 (74-106) mg/dL Calcium 9.0 (8.5-10.1) mg/dL Total Bilirubin 0.9 (0.2-1.0) mg/dL AST 14 L (15-37) IU/L ALT 18 (14-63) IU/L Alkaline Phosphatase 55 (46-116) U/L Total Protein 7.9 (6.4-8.2) g/dL Albumin 4.2 (3.4-5.0) g/dL Globulin 3.7 (2.6-4.0) g/dL Albumin/Globulin Ratio 1.1 (0.9-1.6) Urine Color Urine Appearance Urine pH (5.0-8.0) Ur Specific [place] (1.001-1.035) Urine Protein (NEGATIVE) mg/dL Urine Glucose (UA) (NEGATIVE) mg/dL Urine Ketones (NEGATIVE) mg/dL Urine Occult Blood (NEGATIVE) Urine Nitrite (NEGATIVE) Urine Bilirubin (NEGATIVE) Urine Ictotest Urine Urobilinogen (<2.0) EU/dL Ur Leukocyte Esterase (NEGATIVE) Urine RBC (0-2/HPF) Urine WBC (0-5/HPF) Ur Epithelial Cells (NONE-FEW) Amorphous Sediment (NEGATIVE) Urine Bacteria (NEGATIVE) Urine Mucus (NONE-MOD) Urine HCG, Qual (NEGATIVE) SARS-CoV-2 RNA (RT-PCR) NEGATIVE (NEGATIVE) 06/23/20 06/23/20 Range/Units 21:00 21:00 WBC (4.0-11.0) K/uL RBC (4.30-5.90) M/uL Hgb (12.0-16.0) g/dL Hct (36.0-46.0) % MCV (80.0-98.0) fL MCH (27.0-32.0) pg MCHC (31.0-37.0) g/dL RDW Std Deviation (28.0-62.0) fl RDW Coeff of Paul (11.0-15.0) % Plt Count (150-400) K/uL MPV (7.40-12.00) fL Neut % (Auto) (48.0-80.0) % Lymph % (Auto) (16.0-40.0) % [place] % (Auto) (0.0-15.0) % Eos % (Auto) (0.0-7.0) % Baso % (Auto) (0.0-1.5) % Neut # (Auto) (1.4-5.7) K/uL Lymph # (Auto) (0.6-2.4) K/uL [place] # (Auto) (0.0-0.8) K/uL Eos # (Auto) (0.0-0.7) K/uL Baso # (Auto) (0.0-0.1) K/uL Nucleated RBC % /100WBC Nucleated RBCs # K/uL Sodium (136-145) mmol/L Potassium (3.5-5.1) mmol/L Chloride (98-107) mmol/L Carbon Dioxide (21.0-32.0) mmol/L BUN (7.0-18.0) mg/dL Creatinine (0.6-1.0) mg/dL Est Cr Clr Drug Dosing mL/min Estimated GFR (MDRD) ml/min Glucose (74-106) mg/dL Calcium (8.5-10.1) mg/dL Total Bilirubin (0.2-1.0) mg/dL AST (15-37) IU/L ALT (14-63) IU/L Alkaline Phosphatase (46-116) U/L Total Protein (6.4-8.2) g/dL Albumin (3.4-5.0) g/dL Globulin (2.6-4.0) g/dL Albumin/Globulin Ratio (0.9-1.6) Urine Color DARK YELLOW Urine Appearance SLT CLOUDY Urine pH 5.5 (5.0-8.0) Ur Specific [place] >= 1.030 (1.001-1.035) Urine Protein 30 H (NEGATIVE) mg/dL Urine Glucose (UA) NEGATIVE (NEGATIVE) mg/dL Urine Ketones >=80 (NEGATIVE) mg/dL Urine Occult Blood TRACE-INTACT H (NEGATIVE) Urine Nitrite POSITIVE H (NEGATIVE) Urine Bilirubin MODERATE H (NEGATIVE) Urine Ictotest NEGATIVE Urine Urobilinogen 1.0 (<2.0) EU/dL Ur Leukocyte Esterase TRACE H (NEGATIVE) Urine RBC 0-2 (0-2/HPF) Urine WBC 4-12 (0-5/HPF) Ur Epithelial Cells RARE (NONE-FEW) Amorphous Sediment FEW (NEGATIVE) Urine Bacteria 1+ H (NEGATIVE) Urine Mucus FEW (NONE-MOD) Urine HCG, Qual NEGATIVE (NEGATIVE) SARS-CoV-2 RNA (RT-PCR) (NEGATIVE) Meds: Medications Generic Name Dose Route Start Last Admin Trade Name Lesly PRN Reason Stop Dose Admin Sodium Chloride 10 ml 03/26/20 19:35 Saline Flush FLUSH ASDIRECTED PRN Keep Vein Open Sodium Chloride 2.5 ml 03/26/20 19:35 Saline Flush FLUSH ASDIRECTED PRN Keep Vein Open Sodium Chloride 10 ml 03/26/20 19:35 Saline Flush FLUSH ASDIRECTED PRN Keep Vein Open Discontinued Medications Generic Name Dose Route Start Last Admin Trade Name Lesly PRN Reason Stop Dose Admin Acetaminophen 650 mg 03/26/20 21:06 Tylenol PO 03/26/20 21:07 NOW ONE Diphenhydramine HCl 25 mg 03/26/20 22:05 03/26/20 22:15 Benadryl IVPUSH 03/26/20 22:06 25 mg ONETIME ONE Administration Sodium Chloride 1,000 mls @ 999 mls/hr 03/26/20 19:35 03/26/20 19:59 Normal Saline IV 03/26/20 20:35 999 mls/hr BOLUS ONE Administration Ceftriaxone Sodium 1 gm/ 50 mls @ 200 mls/hr 03/26/20 22:53 06/24/20 00:13 Sodium Chloride IV 03/26/20 23:07 200 mls/hr ONETIME ONE Administration Ceftriaxone Sodium/Dextrose Confirm 03/27/20 00:14 Rocephin In Dextrose,Iso-Osm 1 Gm/50 Ml Administered 03/27/20 00:15 Dose 50 mls @ as directed .ROUTE .STK-MED ONE Ketorolac Tromethamine 30 mg 03/26/20 19:35 03/26/20 19:58 Toradol IVPUSH 03/26/20 19:36 30 mg ONETIME ONE Administration Lidocaine HCl 4 ml 03/26/20 22:06 Xylocaine 4% Top Soln MUCMEM 03/26/20 22:07 ONETIME ONE Metoclopramide HCl 10 mg 03/26/20 22:05 03/26/20 22:15 Reglan IVPUSH 03/26/20 22:06 10 mg ONETIME ONE Administration Ondansetron HCl 4 mg 03/26/20 19:35 03/26/20 19:59 Zofran IVPUSH 03/26/20 19:36 4 mg ONETIME ONE Administration - Re-Assessments/Exams Free Text/Narrative Re-Assessment/Exam: 03/26/20 22:41 Patient just received Reglan and Benadryl and I placed transphenoidal block. Plan of care with the patient. She agrees with the plan. 03/27/20 00:50 Patient is now feeling much better. She is in no acute distress. Reexamined. No meningeal signs. No signs of meningitis. Discussed UA results. Suspect partially treated UTI/failure of Macrobid and therefore was given dose of Rocephin. Keflex sent to the patient's pharmacy to be picked up tomorrow. Patient is in agreement with this plan. CT scan resulted and shows no mastoiditis or other acute intracranial abnormality. Departure - Departure Time of Disposition: 00:50 Sepsis Event Note (ED) - Focused Exam Vital Signs: Vital Signs Temp Pulse Resp BP Pulse Ox 03/26/20 19:24 96.9 F 80 16 119/79 97
[2020-03-26 20:43] LABS: CARBON DIOXIDE,CO2 24.5 mmol/L (21.0-32.0); POTASSIUM,K 3.7 mmol/L (3.5-5.1)
[2020-03-26] MEDS ORDERED: Acetaminophen 325 MG Tab PO ONE (21:06)
[2020-03-26] MEDS ORDERED: diphenhydrAMINE 50 MG/ML SDV IVPUSH ONE (22:05)
[2020-03-26] MEDS ORDERED: Metoclopramide 10 MG/2 ML SDV IVPUSH ONE (22:05)
[2020-03-26] MEDS ORDERED: Lidocaine 4% Top Soln 50 ML Bottle MUCMEM ONE (22:06)
[2020-03-26] MEDS ORDERED: cefTRIAXone 1 GM in Sodium Chloride 0.9% 50 ML IV ONE (22:53)
--- NOTE | 2020-03-26 23:59 | CT ---
INDICATION: Headache TECHNIQUE: CT Head without i.v. contrast. COMPARISON: None FINDINGS: CSF space: The ventricles are normal for age. Brain: No evidence of mass, acute infarction or hemorrhage is seen. No mass-effect or midline shift is seen. The brain parenchyma is otherwise normal in appearance with preservation of the andrade-white matter junction. Calvarium: The visualized paranasal sinuses are well aerated. The mastoid air cells are clear. The visualized orbits are grossly unremarkable. The calvarium is unremarkable in appearance with no fractures identified. IMPRESSION: 1. No evidence of acute infarction, intracranial hemorrhage, or mass-effect seen. Please note that all CT scans at this facility use dose modulation, iterative reconstruction, and/or weight-based dosing when appropriate to reduce radiation dose to as low as reasonably achievable. Dictated by: Percy Thorne MD @ 03/26/2020 23:58:01 (Electronically Signed)
[2020-03-27 05:15] VITALS: BP 113/68; PULSE 76
== END 2020-03-27 01:00 | disposition home or self-care (01) ==
LOC: MW.ED 19:15
DX: R51 Headache (principal); N30.00 Acute cystitis without hematuria; Z20.828 Contact with and (suspected) exposure to other viral communicable diseases
CPT/HCPCS: 36415; 64505; 70450; 70450-26; 80053; 81001; 81025; 85025; 96361; 96365; 96375; 99283; 99284-25; J0696; J1200; J1885; J2405; J2765; J7030; J7050; U0002

== ENCOUNTER 2021-01-22 08:28 | Day surgery (SDC) | payer BC ==
[~2021-01-22 08:28] MED LIST: Glycopyrrolate 0.2 MG/ML SDV ONE; Lactated Ringers 1,000 ML IV SCH; Lidocaine 2% 5 ML SDV ONE; Midazolam 1 MG/ML 2 ML SDV ONE; Propofol 200 MG/20 ML SDV ONE
--- NOTE | 2021-01-22 09:10 | PCM.PREANE ---
Preanesthetic Assessment - Anesthesia/Transfusion/Family Hx Anesthesia History: Prior Anesthesia Without Reaction Family History of Anesthesia Reaction: No Transfusion History: No Prior Transfusion(s) - Review of Systems General: No Symptoms Pulmonary: No Symptoms Cardiovascular: No Symptoms Gastrointestinal: No Symptoms Neurological: No Symptoms Other: Reports: None - Physical Assessment NPO Status Date: 01/22/21 NPO Status Time: 00:01 Vital Signs: Last Vital Signs Temp 98.1 F 01/22/21 09:06 Pulse 61 01/22/21 09:06 Resp 16 01/22/21 09:06 BP 135/74 01/22/21 09:06 Pulse Ox 99 01/22/21 09:06 Height: 5 ft 8 in Weight: 165 lb ASA Class: 2 Mental Status: Alert & Oriented x3 Airway Class: Mallampati = 2 Dentition: Reports: Normal Dentition ROM/Head Extension: Full Lungs: Clear to Auscultation, Normal Respiratory Effort Cardiovascular: Regular Rate, Regular Rhythm - Lab Values: Laboratory Last Values Urine HCG, Qual NEGATIVE (NEGATIVE) 01/22/21 08:45 - Allergies Allergies/Adverse Reactions: Allergies Allergy/AdvReac Type Severity Reaction Status Date / Time No Known Allergies Allergy Verified 01/22/21 09:05 - Anesthesia Plan Pre-Op Medication Ordered: None - Acknowledgements Anesthesia Type Planned: General Anesthesia Pt an Appropriate Candidate for the Planned Anesthesia: Yes Alternatives and Risks of Anesthesia Discussed w Pt/Guardian: Yes Pt/Guardian Understands and Agrees with Anesthesia Plan: Yes Additional Comments: npo after mn tob none etoh occ no cv problems par no questions PreAnesthesia Questionnaire - Past Health History Medical/Surgical History: Denies Medical/Surgical History HEENT History: Reports: Other (See Below) Other HEENT History: wears glasses Cardiovascular History: Reports: None Respiratory History: Reports: None Gastrointestinal History: Reports: Other (See Below) Other Gastrointestinal History: hx of abdominal bloating and gas Genitourinary History: Reports: UTI, Recurrent Other Genitourinary History: last UTI was 1 month ago 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: Musculoskeletal History: Reports: None 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 Neurological History: Reports: None Psychiatric History: Reports: None Endocrine/Metabolic History: Reports: None Hematologic History: Reports: None Immunologic History: Reports: None Oncologic (Cancer) History: Reports: None Dermatologic History: Reports: Eczema - Infectious Disease History Infectious Disease History: Reports: Chicken Pox - Past Surgical History Head Surgeries/Procedures: Reports: None HEENT Surgical History: Reports: Oral Surgery Other HEENT Surgeries/Procedures: wisdom teeth extracted Cardiovascular Surgical History: Reports: None Respiratory Surgical History: Reports: None GI Surgical History: Reports: None Female Surgical History: Reports: None - SUBSTANCE USE Tobacco Use Status *Q: Never Tobacco User Recreational Drug Use History: No - HOME MEDS Home Medications: Home Meds Desogestrel/Ethinyl Estradiol [Apri] 1 tab PO DAILY 01/17/21 [History] L.acidoph,Paracasei, B.lactis [Probiotic] 1 cap PO DAILY 01/17/21 [History] calcium polycarbophiL [Fibercon] 1 tab PO DAILY 01/17/21 [History] - CURRENT (IN HOUSE) MEDS Current Meds: Current Medications Lactated Ringer's (Ringers, Lactated) 1,000 mls @ 125 mls/hr IV ASDIRECTED SCARLETT Last Admin: 01/22/21 09:04 Dose: 125 mls/hr Documented by: Discontinued Medications Glycopyrrolate (Glycopyrrolate 0.2 Mg/Ml Sdv) Confirm Administered Dose 0.2 mg .ROUTE .STK-MED ONE Stop: 01/22/21 07:18 Lidocaine (Lidocaine 2% 5 Ml Sdv) Confirm Administered Dose 5 ml .ROUTE .STK-MED ONE Stop: 01/22/21 07:18 Midazolam HCl (Midazolam 1 Mg/Ml 2 Ml Sdv) Confirm Administered Dose 2 mg .ROUTE .STK-MED ONE Stop: 01/22/21 07:18 Propofol (Propofol 200 Mg/20 Ml Sdv) Confirm Administered Dose 200 mg .ROUTE .STK-MED ONE Stop: 01/22/21 07:18
--- NOTE | 2021-01-22 09:50 | PCM.OPNOTE ---
- General Post-Op/Procedure Note Date of Surgery/Procedure: 01/22/21 Operative Procedure(s): egd w duodenum bx Findings: see [id number] Pre Op Diagnosis: bloating and gluten intolerence Post-Op Diagnosis: Same Anesthesia Technique: Moderate Sedation Primary Surgeon: Poli Plummer Pathology: antrum, body, ge junction at 40 and duod bx for celiac disease Complications: None Condition: Good
--- NOTE | 2021-01-22 10:32 | PCM.POSTAN ---
POST ANESTHESIA ASSESSMENT - MENTAL STATUS Mental Status: Alert (no anesthetic problems), Oriented - VITAL SIGNS Vital Signs: Last Vital Signs Temp 98.1 F 01/22/21 09:06 Pulse 81 01/22/21 09:56 Resp 15 01/22/21 09:56 BP 117/71 01/22/21 09:56 Pulse Ox 97 01/22/21 09:56 - RESPIRATORY Respiratory Status: Respiratory Rate WNL, Airway Patent, O2 Saturation Stable - CARDIOVASCULAR CV Status: Pulse Rate WNL, Blood Pressure Stable - GASTROINTESTINAL GI Status: No Symptoms - POST OP HYDRATION Hydration Status: Adequate & Stable
--- NOTE | 2021-01-22 10:33 | PCM48HPAN ---
Post Anesthesia Note - EVALUATION WITHIN 48HRS OF ANESTHETIC Vital Signs in Normal Range: Yes Patient Participated in Evaluation: Yes Respiratory Function Stable: Yes Airway Patent: Yes Cardiovascular Function Stable: Yes Hydration Status Stable: Yes Pain Control Satisfactory: Yes Nausea and Vomiting Control Satisfactory: Yes Mental Status Recovered: Yes Vital Signs: Last Vital Signs Temp 98.1 F 01/22/21 09:06 Pulse 81 01/22/21 09:56 Resp 15 01/22/21 09:56 BP 117/71 01/22/21 09:56 Pulse Ox 97 01/22/21 09:56
[2021-01-22 12:17] VITALS: BP 122/62; PULSE 64
--- NOTE | 2021-01-22 17:02 | OR ---
SURGEON: Poli Plummer MD DATE OF PROCEDURE: 01/22/2021 PREOPERATIVE DIAGNOSIS: Bloating and not tolerate gluten. POSTOPERATIVE DIAGNOSIS: Bloating and not tolerate gluten. PROCEDURE PERFORMED: Esophagogastroduodenoscopy with biopsy. DESCRIPTION OF PROCEDURE: EGD: The patient was taken to the endoscopy room, and with the FACTORY ASSEMBLER, Diprivan was administered. A well-lubricated EGD scope was gently inserted through the oropharynx, down the esophagus, passing through the gastroesophageal junction, into the stomach. The mucosa was examined upon the passage. Any etiology will be noted. Once in the stomach, we continued to advance to the distal antrum, passed through the pylorus into the second portion of the duodenum. Again, the mucosa was examined for any abnormality and etiology. The scope was then retrieved back to the stomach and then retroflexed to look at the fundus of the stomach. If a biopsy was indicated, we will biopsy the antrum, body, and gastroesophageal junction. The air will be sucked out while the scope is retrieved to reduce the patient's discomfort. The patient tolerated the procedure well. There were no intraoperative complications. Dr. Plummer was present through the whole procedure. Prior to surgery, a time-out had been called, the patient identified, procedure identified and antibiotic administered. FINDINGS: 1. The patient is easily sedated with FACTORY ASSEMBLER and Diprivan, the patient is soundly snoring. 2. The patient also did the gluten challenge for two weeks and she said it is getting more symptomatic while she is doing the gluten challenge and more bloating. 3. Oropharynx and proximal esophagus are free of disease, stricture, or inflammation. Distal esophagus at GE junction shows mild salmon-colored change suggestive of very mild acid reflux. Stomach rugae are normal in appearance. Antrum looks fine. Duodenum looks grossly normal. Biopsy done at the second portion of duodenum to assess celiac disease. Retroflexed look at the fundus of stomach, there is no hiatal hernia. Biopsy done at antrum, body, GE junction at 40 and sucked out the gas while scope pulling out. During the whole study, there is no blood, fluid, food particle, or bile observed. MOSES / MODL /[id number]
== END 2021-01-22 10:17 | disposition home or self-care (01) ==
LOC: MW.SDS 08:28
PROVIDERS: ATTEND Surgery
DX: R14.0 Abdominal distension (gaseous) (principal); Z79.899 Other long term (current) drug therapy
CPT/HCPCS: 43239; 81025; J2250; J2704; J3490; J7120; 00731; 88305; 88312